=== PATIENT | male | born 1960 | race Caucasian/White ===

== ENCOUNTER 2020-10-15 18:35 | Inpatient (IN) | payer SELFPAY ==
[~2020-10-15] VITALS: Ht 188 cm; Wt 85.9 kg
[2020-10-15] MEDS ORDERED: NICOTINE14 MG/24 H (18:39)
[2020-10-15] MEDS ORDERED: NOVAPLUS L40 MG/0.4 SQ (18:40)
[2020-10-15] MEDS ORDERED: MAGNESIUM400 M1 PO (18:41)
[2020-10-15] MEDS ORDERED: COLACE100 M1 PO (18:41)
[2020-10-15] MEDS ORDERED: PROTONIX TR40 M1 PO (18:42)
[2020-10-15] MEDS ORDERED: FOLIC ACID1 MG PO (18:42)
[2020-10-15] MEDS ORDERED: B-1100 M1 PO (18:42)
[2020-10-15] MEDS ORDERED: MULTIPLE VITAMI1 TA5 PO (18:43)
[2020-10-15] MEDS ORDERED: PROVENTIL0.09 MG/A1 IH (18:44)
[2020-10-15] MEDS ORDERED: POTASSIUM CH2 MEQ/ML PO (18:45)
[2020-10-15] MEDS ORDERED: ZESTRIL5 M1 PO (18:54)
[2020-10-15 18:59] VITALS: BP 121/91
[2020-10-16 06:08] VITALS: BP 134/87
[2020-10-16 09:04] VITALS: BP 109/66
[2020-10-16 12:11] LABS: BASO # 0.03 (0.02-0.10); EOS # 0.15 (0.04-0.40); EOS % 1.1 % (0.0-4.0); HEMATOCRIT 36.2 % (42.0-52.0); HEMOGLOBIN 12.2 g/dL (13.5-18.0); LYMPH# 1.44 (1.50-4.00); MEAN CELL VOLUME 99 fl (78-100); MEAN CORPUSCULAR HEMOGLOBIN 33 pg (27-31); MEAN CORPUSCULAR HGB CONC 34 g/dL (33-37); MEAN PLATELET VOLUME 10.3 fl (7.4-10.4); MONO # 1.07 (0.20-0.80); PLATELET COUNT 126 K/mm3 (130-400); RED BLOOD COUNT 3.65 M/mm3 (4.20-5.60); RED CELL DISTRIBUTION WIDTH 12.1 % (11.5-14.5); WHITE BLOOD COUNT 14.3 K/mm3 (4.8-10.8)
[2020-10-16 12:21] LABS: CALCIUM 8.5 mg/dL (8.3-10.5)
[2020-10-16 12:33] LABS: URINE COLOR AMBER
[2020-10-16 12:34] LABS: PH-URINE 5.5 (5.0 - 8.0); URINE APPEARANCE CLEAR; URINE BILIRUBIN NEGATIVE (NEGATIVE); URINE BLOOD TRACE (NEGATIVE); URINE GLUCOSE NEGATIVE (NEGATIVE); URINE KETONE NEGATIVE (NEGATIVE); URINE LEUKOCYTE ESTERASE NEGATIVE (NEGATIVE); URINE NITRATE NEGATIVE (NEGATIVE); URINE PROTEIN(semi-quant) 1+ mg/dL (NEGATIVE); URINE UROBILINOGEN 8 mg/dL (NORMAL); URINE WBC 0-1 /hpf (0-3)
[2020-10-16 13:27] VITALS: BP 103/72
[2020-10-16 17:14] VITALS: BP 111/76
[2020-10-17] VITALS (7 sets, daily range): BP systolic 109–142; BP diastolic 75–92
[2020-10-17 07:22] LABS: BASO # 0.03 (0.02-0.10); EOS # 0.35 (0.04-0.40); EOS % 3.9 % (0.0-4.0); HEMATOCRIT 34.8 % (42.0-52.0); HEMOGLOBIN 11.6 g/dL (13.5-18.0); LYMPH# 1.47 (1.50-4.00); MEAN CELL VOLUME 100 fl (78-100); MEAN CORPUSCULAR HEMOGLOBIN 33 pg (27-31); MEAN CORPUSCULAR HGB CONC 33 g/dL (33-37); MEAN PLATELET VOLUME 10.3 fl (7.4-10.4); MONO # 0.99 (0.20-0.80); NEU # 6.03 (1.40-6.50); PLATELET COUNT 139 K/mm3 (130-400); RED BLOOD COUNT 3.47 M/mm3 (4.20-5.60); RED CELL DISTRIBUTION WIDTH 12.1 % (11.5-14.5)
[2020-10-17 07:51] LABS: POTASSIUM 3.7 mmol/L (3.5-5.1)
[2020-10-17 07:53] LABS: CALCIUM 8.7 mg/dL (8.3-10.5)
[2020-10-18 01:58] VITALS: BP 125/82
[2020-10-18 05:34] VITALS: BP 130/83
[2020-10-18 10:04] VITALS: BP 125/86
[2020-10-18 12:16] LABS: HEMATOCRIT 36.5 % (42.0-52.0); HEMOGLOBIN 11.9 g/dL (13.5-18.0); MEAN CELL VOLUME 103 fl (78-100); MEAN CORPUSCULAR HEMOGLOBIN 33 pg (27-31); MEAN CORPUSCULAR HGB CONC 33 g/dL (33-37); PLATELET COUNT 226 K/mm3 (130-400); RED BLOOD COUNT 3.56 M/mm3 (4.20-5.60); RED CELL DISTRIBUTION WIDTH 12.3 % (11.5-14.5); WHITE BLOOD COUNT 10.4 K/mm3 (4.8-10.8)
[2020-10-18 12:34] LABS: ALBUMIN 3.5 g/dL (3.5-5.0)
[2020-10-18 12:35] LABS: POTASSIUM 4.4 mmol/L (3.5-5.1)
[2020-10-18 12:36] LABS: CALCIUM 9.3 mg/dL (8.3-10.5)
[2020-10-18 12:37] LABS: TOTAL PROTEIN 6.8 g/dL (6.4-8.3)
[2020-10-18 12:39] LABS: TOTAL BILIRUBIN 0.3 mg/dL (0.2-1.2)
[2020-10-18 12:49] LABS: BAND 1 % (0-10); LYMPHOCYTE 20 % (20-51); METAMYELOCYTE 1 % (0-0); MONOCYTE 13 % (3-10); MYELOCYTE 2 % (0-0); NEUTROPHILS 62 % (42-75)
[2020-10-18 13:45] VITALS: BP 121/84
[2020-10-18 17:27] VITALS: BP 118/86
[2020-10-18 21:28] VITALS: BP 136/93
[2020-10-19 01:46] VITALS: BP 172/109
[2020-10-19 06:01] VITALS: BP 140/88
[2020-10-19 09:19] VITALS: BP 120/77
[2020-10-19 14:08] VITALS: BP 128/90
[2020-10-19 16:22] VITALS: BP 127/88
[2020-10-19 21:42] VITALS: BP 142/102
[2020-10-20 02:07] VITALS: BP 133/86
[2020-10-20 05:37] VITALS: BP 128/78
[2020-10-20 06:01] LABS: URINE WBC 0 /hpf (0-3)
[2020-10-20 06:49] LABS: URINE APPEARANCE CLEAR; URINE COLOR YELLOW
[2020-10-20 06:50] LABS: URINE BILIRUBIN NEGATIVE (NEGATIVE); URINE BLOOD NEGATIVE (NEGATIVE); URINE GLUCOSE NEGATIVE (NEGATIVE); URINE KETONE NEGATIVE (NEGATIVE); URINE LEUKOCYTE ESTERASE NEGATIVE (NEGATIVE); URINE NITRATE NEGATIVE (NEGATIVE); URINE PROTEIN(semi-quant) NEGATIVE (NEGATIVE); URINE UROBILINOGEN NORMAL (NORMAL)
[2020-10-20 07:14] LABS: ALBUMIN 3.3 g/dL (3.5-5.0)
[2020-10-20 07:15] LABS: POTASSIUM 4.2 mmol/L (3.5-5.1)
[2020-10-20 07:16] LABS: CALCIUM 9.7 mg/dL (8.3-10.5)
[2020-10-20 07:17] LABS: TOTAL PROTEIN 6.4 g/dL (6.4-8.3)
[2020-10-20 07:19] LABS: TOTAL BILIRUBIN 0.3 mg/dL (0.2-1.2)
[2020-10-20 09:25] VITALS: BP 149/99
== END 2020-10-20 12:30 | disposition home or self-care (01) | DRG 897 ==
LOC: MED/SURG 18:35
PROVIDERS: Nurse Practitioner; Physician Assistant; ADMIT Family Medicine
DX: F10.139 Alcohol abuse with withdrawal, unspecified (principal); N17.9 Acute kidney failure, unspecified; I10 Essential (primary) hypertension; R26.9 Unspecified abnormalities of gait and mobility; E87.6 Hypokalemia; R53.81 Other malaise; Z20.822 Contact with and (suspected) exposure to COVID-19
CPT/HCPCS: J1650